=== PATIENT | male | born 1965 | race Caucasian/White ===

== ENCOUNTER 2018-05-23 05:40 | Day surgery (SDC) | payer MEDICARE, OTHER ==
[~2018-05-23] VITALS: Ht 162.6 cm; Wt 89.8 kg
[~2018-05-23 05:40] MED LIST: ABILIFY10 MG PO; ABILIFY5 MG PO; ATENOLOL25 MG PO; ATIVAN1 MG PO; BENZTROPINE ME0.5 MG PO; CLOZAPINE100 MG PO; CLOZAPINE200 MG PO; COLACE100 MG PO; GEMFIBROZIL600 MG PO; LIPITOR10 MG PO; VITAMIN D31000 UNIT PO
--- NOTE | 2018-05-23 08:36 | NUR ---
05/23/18 0836 Trisha Hernandez 0821 - PT ARRIVES TO PACU FROM OR ON 3 L VIA MASK WITH SATS 100%. PT REACTIVE AND RESPONDS TO VERBAL STIMULUS. PT DENIES PAIN/NAUSEA. SURGICAL DRESSING C/D/I. SCDS ON AND APPLIED. 0825- PT TITRATED TO RA. SATS >90%. RESP EVEN AND UNLABORED. PT TALKING TO STAFF AND DENIES PAIN/NAUSEA. 0833- ICE PACK APPLIED TO SURGICAL AREA ON BACK. PT DRINKS WATER AND TOLERATES. RESP EVEN AND UNLABORED. RA SATS >90%.
[2018-05-23] MEDS ORDERED: NORCO 5-325 TA1 EACH PO (08:58)
--- NOTE | 2018-05-23 10:13 | NUR ---
PT ACCOMPANIED BY NOVELTY TWISTER OPERATOR. PT WOULD RESPOND TO QUESTIONS, RATHER SLOWLY BUT ON POINT. PCG SEEMED INFORMED AND HAD NO QUESTIONS. EXTENDED A BLESSING, WILL FOLLOW NEEDED
--- NOTE | 2018-05-27 08:04 | OR ---
[facility] [address], [place] [address] Signed DATE OF OPERATION: 05/23/2018 SURGEON: Cherelle Tai MD PREOPERATIVE DIAGNOSIS: Intrascapular subcutaneous mass (1.5 cm). POSTOPERATIVE DIAGNOSIS: Intrascapular subcutaneous mass (1.5 cm). PROCEDURE PERFORMED: Excision of intrascapular subcutaneous mass. ESTIMATED BLOOD LOSS: None. 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 INDICATIONS: Marily is a 53-year-old gentleman who happens to have significant schizophrenia and other medical issues. He is thankfully out of these. 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 We helped him with a colonoscopy for his colonic polyps. In addition, he has a subcutaneous mass right over the spine between his shoulder blades. He said it is painful and it has gotten larger, and he would like to have that removed. We felt it was just a little bit much to do that for Marily in our office. We decided to bring him over to the hospital under monitored anesthesia care in addition to our local anesthetic, so we can get that removed for him under controlled conditions. I reviewed this with Marily and his caregiver in detail. They understand the nature of the incision required to remove the lesion. We reviewed the expected intraop and postop course. There is risk of surgery including, but not limited to bleeding, infection, scarring, change in contour of the skin, as well as recurrent lesions in the same or other locations. He had expressed understanding and wished to proceed. DESCRIPTION OF PROCEDURE: I met with Marily and his caregiver in our preop area. We were all able to easily identify his subcutaneous lesion between his shoulder blades. We marked it appropriately. After this, we took Marily into our operating room and placed in the left lateral decubitus position with appropriate padding and monitoring. He underwent monitored anesthesia care with propofol per our nurse front desk assistant. He was prepped and Electronically Signed By: CHERELLE TAI MD 05/27/18 0804 PATIENT NAME: MARILY XAVIER OPERATIVE REPORT DATE OF : 65 REPORT #: [id number] PHYSICIAN: CHERELLE TAI MD PCP: ZO BAUER MD REPORT IS CONFIDENTIAL AND NOT TO BE RELEASED WITHOUT AUTHORIZATION [facility] [address], [place] [address] Signed draped in usual sterile fashion. He was given preoperative antibiotics along with subcutaneous heparin. SCDs were utilized. After this, local anesthetic was copiously injected in and around, and underneath the lesion. A vertical incision was made over the lesion and carried down around the lesion with the help of a cautery. It appears to be a chronic epidermal and/or sebaceous cyst. The entire lesion and the wall of the lesion were removed, and passed off to the Pathology Department. The wound was irrigated and suctioned out until clear. We closed the dermis with interrupted 3-0 subcuticular Monocryl sutures. The skin edges were reapproximated with a running 6-0 fast absorbing plain gut suture. Dry gauze and tape were then applied. After this, we rotated Marily into the supine position on his hospital bed and took him into recovery room in stable condition. Marily tolerated his procedure quite well. Cherelle Tai MD ALB/MODL /[id number] cc: MD Cherelle Redd MD Copies: ZO BAUER MD, ANDREW L MD ~ Electronically Signed By: CHERELLE TAI MD 05/27/18 0804 PATIENT NAME: MARILY XAVIER OPERATIVE REPORT DATE OF : 65 REPORT #: [id number] PHYSICIAN: CHERELLE TAI MD PCP: ZO BAUER MD REPORT IS CONFIDENTIAL AND NOT TO BE RELEASED WITHOUT AUTHORIZATION
== END 2018-05-23 09:20 | disposition home or self-care (01) ==
LOC: DS 05:40
PROVIDERS: Colon & Rectal Surgery
PROC: 0HB6XZZ Excision of Back Skin, External Approach (ICD-10-PCS; principal; 2018-05-23 06:45)
DX: L72.0 Epidermal cyst (principal); I10 Essential (primary) hypertension; J45.909 Unspecified asthma, uncomplicated; E78.00 Pure hypercholesterolemia, unspecified; F17.210 Nicotine dependence, cigarettes, uncomplicated; Z79.899 Other long term (current) drug therapy
CPT/HCPCS: 00400; 88304; J0690; J1644; J2704; J3010; J7120

== ENCOUNTER 2019-01-06 18:29 | Emergency (ER) | payer MEDICARE, OTHER ==
[~2019-01-06] VITALS: Ht 162.6 cm; Wt 89.8 kg
[~2019-01-06 18:29] MED LIST changes: +NORCO 5-325 TA1 EACH PO
--- OUTSIDE RECORDS SUMMARY | 2019-01-06 18:34 | XMS ---
PreManage Notification: MARILY XAVIER Security Make Up Editor Events No recent Security Events currently on file CRITERIA MET - [facility] CARE PROVIDERS ZO BAUER Other 12/11/2014-Current PHONE: Unknown Guidelines Source: [facility] [place] Guidelines Date: 02/13/2018 Additional Information: Legal Guardian: Rebecca Altamiranoanna [phone] Enrolled in [employer]ive Community Treatment program with [facility].\T\nbsp; Please contact Gemini Comer @ [facility] regarding mental health concerns. [phone]. Prescription medications go through [facility] [phone]. Care History Behavioral 09/23/2017 [facility] Legal Guardian: Rebecca Ritchiesergey [phone] [facility] VISIT COUNT (12 MO.) [address] [place] [address] TOTAL 1 NOTE: Visits indicate total known visits. ED/UCC VISIT TRACKING (12 MO.) 01/06/2019 18:[address] [facility] [place] TYPE: Emergency COMPLAINT: - MUTIPLE COMPLAINTS INPATIENT VISIT TRACKING (12 MO.) No inpatient visits to display in this time frame [email or web address]
--- NOTE | 2019-01-07 14:05 | EKG ---
[facility] [address] [facility] [place] [address] Signed Normal sinus rhythm Normal ECG When compared with ECG of 25-MAR-2018 13:48, No significant change was found Confirmed by KYLIE ESCALANTE MD ([id number]) on 01/07/2019 2:04:51 PM Electronically Signed By: KYLIE ESCALANTE MD 01/07/19 1405 PATIENT NAME: MARILY XAVIERMONS Electrocardiogram DATE OF : 65 PHYSICIAN: KYLIE ESCALANTE MD REPORT #: [id number] REPORT IS CONFIDENTIAL AND NOT TO BE RELEASED WITHOUT AUTHORIZATION
== END 2019-01-06 21:16 | disposition home or self-care (01) ==
LOC: ED 18:29
DX: R42 Dizziness and giddiness (principal); F20.9 Schizophrenia, unspecified; Z87.891 Personal history of nicotine dependence; Z88.5 Allergy status to narcotic agent; Z79.899 Other long term (current) drug therapy
CPT/HCPCS: 80053; 83735; 84484; 85025; 93005; 93010; 99284-25